=== PATIENT | female | born 1995 | race African-American/Black ===

== ENCOUNTER 2017-01-17 16:49 | Emergency (ER) | payer SELFPAY ==
[2017-01-17] MEDS ORDERED: ACETAMINOPHEN 325 MG TABLET. PO ONE (17:45)
--- NOTE | 2017-01-17 18:11 | PHYS DOC ---
Past Medical History Past Medical History: Asthma, Bronchitis, GERD Past Surgical History: Other Additional Past Surgical Histo: RIGHT HAND SURGERY FOR FRACTURED FINGERS Alcohol Use: None Drug Use: None Adult General Chief Complaint Chief Complaint: SYNCOPE HPI HPI This is a 21-year-old female who states she was at [facility] today and then had a panic attack and she felt very short of breath and weak. Patient additionally reports she had some mild spotting for the last 1-2 days. She believes she is based on her last menstrual period being several months ago apparently. She has not had any follow-up with OB as of yet. Patient does states she has history of a psychiatric disorder and is currently living in a long-term. She does not take any medications. She is currently fully alert and oriented and able to answer my questions. She reports some mild cramping with her pain. Review of Systems Review of Systems Constitutional: Denies fever or chills [] Eyes: Denies change in visual acuity, redness, or eye pain [] HENT: Denies nasal congestion or sore throat [] Respiratory: Denies cough or shortness of breath [] Cardiovascular: No additional information not addressed in HPI [] GI: Denies abdominal pain, nausea, vomiting, bloody stools or diarrhea [] : Denies dysuria or hematuria [] Musculoskeletal: Denies back pain or joint pain [] Integument: Denies rash or skin lesions [] Neurologic: Denies headache, focal weakness or sensory changes [] Endocrine: Denies polyuria or polydipsia [] Current Medications Current Medications Current Medications Medications (Trade) Dose Ordered Sig/[place] Start Time Stop Time Status Last Admin Dose Admin Acetaminophen (Tylenol) 650 mg 1X ONCE 01/17/17 17:45 01/17/17 17:46 DC 01/17/17 17:45 650 MG Allergies Allergies Allergies Coded Allergies Type Severity Reaction Last Updated Verified bupropion Allergy Intermediate 10/23/15 Yes Physical Exam Physical Exam Constitutional: Well developed, well nourished, no acute distress, non-toxic appearance. [] HENT: Normocephalic, atraumatic, bilateral external ears normal, oropharynx moist, no oral exudates, nose normal. [] Eyes: PERRLA, EOMI, conjunctiva normal, no discharge. [] Neck: Normal range of motion, no tenderness, supple, no stridor. [] Cardiovascular:Heart rate regular rhythm, no murmur [] Lungs & Thorax: Bilateral breath sounds clear to auscultation [] Abdomen: Bowel sounds normal, soft, no tenderness, no masses, no pulsatile masses. [] Skin: Warm, dry, no erythema, no rash. [] Back: No tenderness, no CVA tenderness. [] Extremities: No tenderness, no cyanosis, no clubbing, ROM intact, no edema. [] Neurologic: Alert and oriented X 3, normal motor function, normal sensory function, no focal deficits noted. [] Psychologic: Affect normal, judgement normal, mood normal. [] Current Patient Data Vital Signs Vital Signs Date Time Temp Pulse Resp B/P (MAP) Pulse Ox O2 Delivery O2 Flow Rate FiO2 01/17/17 17:02 98.1 92 22 126/76 (93) 94 Room Air 98.1 Lab Values Laboratory Tests Test 01/17/17 17:08 01/17/17 18:10 POC Urine HCG, Qualitative Hcg positive (Negative) White Blood Count 10.5 x10^3/uL (4.0-11.0) Red Blood Count 4.93 x10^6/uL (3.50-5.40) Hemoglobin 14.2 g/dL (12.0-15.5) Hematocrit 42.3 % (36.0-47.0) Mean Corpuscular Volume 86 fL (79-100) Mean Corpuscular Hemoglobin 29 pg (25-35) Mean Corpuscular Hemoglobin Concent 34 g/dL (31-37) Red Cell Distribution Width 13.6 % (11.5-14.5) Platelet Count 333 x10^3/uL (140-400) Neutrophils (%) (Auto) 76 % (31-73) H Lymphocytes (%) (Auto) 18 % (24-48) L Monocytes (%) (Auto) 5 % (0-9) Eosinophils (%) (Auto) 1 % (0-3) Basophils (%) (Auto) 1 % (0-3) Neutrophils # (Auto) 8.0 x10^3uL (1.8-7.7) H Lymphocytes # (Auto) 1.9 x10^3/uL (1.0-4.8) Monocytes # (Auto) 0.6 x10^3/uL (0.0-1.1) Eosinophils # (Auto) 0.1 x10^3/uL (0.0-0.7) Basophils # (Auto) 0.1 x10^3/uL (0.0-0.2) Urine Collection Type Unknown Urine Color Yellow Urine Clarity Clear Urine pH 6.0 Urine Specific [place] 1.020 Urine Protein Negative mg/dL (NEG-TRACE) Urine Glucose (UA) Negative mg/dL (NEG) Urine Ketones (Stick) Negative mg/dL (NEG) Urine Blood Negative (NEG) Urine Nitrite Negative (NEG) Urine Bilirubin Negative (NEG) Urine Urobilinogen Dipstick 0.2 mg/dL (0.2 mg/dL) Urine Leukocyte Esterase Trace (NEG) Urine RBC Occ /HPF (0-2) Urine WBC 1-4 /HPF (0-4) Urine Squamous Epithelial Cells Few /LPF Urine Bacteria Few /HPF (0-FEW) Urine Mucus Slight /LPF Maternal Serum HCG Beta Subunit 238713 mIU/mL (0-6) H Sodium Level 137 mmol/L (136-145) Potassium Level 3.4 mmol/L (3.5-5.1) L Chloride Level 100 mmol/L (98-107) Carbon Dioxide Level 27 mmol/L (21-32) Anion Gap 10 (6-14) Blood Urea Nitrogen 13 mg/dL (7-20) Creatinine 0.7 mg/dL (0.6-1.0) Estimated GFR (Cockcroft-Gault) 125.5 BUN/Creatinine Ratio 19 (6-20) Glucose Level 72 mg/dL (70-99) Calcium Level 9.0 mg/dL (8.5-10.1) Total Bilirubin 0.2 mg/dL (0.2-1.0) Aspartate Amino Transferase (AST) 15 U/L (15-37) Alanine Aminotransferase (ALT) 15 U/L (14-59) Alkaline Phosphatase 62 U/L (46-116) Total Protein 8.4 g/dL (6.4-8.2) H Albumin 3.4 g/dL (3.4-5.0) Albumin/Globulin Ratio 0.7 (1.0-1.7) L Laboratory Tests 01/17/17 18:10 Laboratory Tests 01/17/17 18:10 EKG EKG EKG as interpreted by me shows a sinus rhythm with rate of 87 bpm. There are no acute ischemic findings. There is no ectopy. Radiology/Procedures Radiology/Procedures PROCEDURE OB ultrasound dated 01/17/2017. HISTORY Spotty and pain for 2 days. TECHNIQUE Routine sonographic imaging performed. COMPARISON None. FINDINGS Single intrauterine gestation identified. Radisson rump length measuring 5.3 centimeter, correlating with a 12 weeks 0 day gestation. Gestational sac unremarkable. Yolk sac is visualized. cardiac activity estimated at 160 beats per minute. Right ovary measures 3.4 x 2.5 x 1.7 centimeter. Left ovary measures 3.1 x 3.4 x 1.7 centimeter. No adnexal mass or free fluid. IMPRESSION Single viable intrauterine gestation with estimated sonographic gestational age of 12 weeks 0 days. No acute findings. Electronically signed by: Raul Tomlin (January 17, 2017 19:09:10) DICTATED and SIGNED BY: RAUL TOMLIN MD DATE: 01/17/17 1909 CC: KYLE MIRANDA DO; NO PCP ~ Course & Med Decision Making Course & Med Decision Making Pertinent Labs and Imaging studies reviewed. (See chart for details) 18-year-old female who was having significant panic attack and some mild spotting today had a test that was positive. She had a full laboratory workup for her spotting. A transvaginal ultrasound demonstrated viable IUP at approximately 12 weeks gestation. Her laboratory workup was unremarkable. I'll be discharging her with a course of Benadryl to help her rest at night as well as vitamins. I discussed with her that the pregnancies and a friend stated this time and she is to follow closely with an OB doctor next several days to have repeat blood work drawn. Patient is agreeable this plan. She does appear to have some mild psychiatric illness but I deemed her safe at this time to have full capacity to make decisions for her health and she is understanding of her symptoms. Sandra Disclaimer Sandra Disclaimer This electronic medical record was generated, in whole or in part, using a voice recognition dictation system. Departure Departure Impression: Primary Impression: Threatened Additional Impression: Panic attacks Disposition: HOME, SELF-CARE Admitting Physician: Other Condition: STABLE Referrals: NO PCP (PCP) Patient Instructions: Threatened Miscarriage, [id number] Additional Instructions: Please follow up with your OB doctor in the next 2-3 days for your . Take your medication as prescribed. Return to the ER if you develop any worsening of your symptoms. Scripts Vits W-Ca,Fe,Fa(<1MG) ( VITAMINS) 1 Each Tablet 1 EACH PO DAILY for 30 Days, #30 TAB Prov: KYLE MIRANDA DO 01/17/17 Diphenhydramine Hcl (BENADRYL) 25 Mg Capsule 25 MG PO QHS for 10 Days, #10 CAP Prov: KYLE MIRANDA DO 01/17/17 Problem Qualifiers KYLE MIRANDA DO January 17, 2017 18:11
[2017-01-17 18:18] LABS: BASO # 0.1 x10^3/uL (0.0-0.2); BASO % 1 % (0-3); EOS % 1 % (0-3); HEMATOCRIT 42.3 % (36.0-47.0); HEMOGLOBIN 14.2 g/dL (12.0-15.5); LYMPH # 1.9 x10^3/uL (1.0-4.8); LYMPH % 18 % (24-48); MEAN CORPUSCULAR HEMOGLOBIN 29 pg (25-35); MEAN CORPUSCULAR HGB CONC 34 g/dL (31-37); MEAN CORPUSCULAR VOLUME 86 fL (79-100); MONO % 5 % (0-9); NEUT % 76 % (31-73); PLATELET COUNT 333 x10^3/uL (140-400); RED BLOOD COUNT 4.93 x10^6/uL (3.50-5.40); RED CELL DISTRIBUTION WIDTH 13.6 % (11.5-14.5); WHITE BLOOD COUNT 10.5 x10^3/uL (4.0-11.0)
[2017-01-17 18:19] LABS: BILIRUBIN,URINE NEGATIVE (NEG); GLUCOSE,URINE NEGATIVE (NEG); NITRITE,URINE NEGATIVE (NEG); PROTEIN,URINE NEGATIVE (NEG-TRACE); UROBILINOGEN,URINE 0.2 mg/dL (0.2 mg/dL)
[2017-01-17 18:34] LABS: BACTERIA,URINE FEW /HPF (0-FEW); RBC,URINE OCC /HPF (0-2); SQUAMOUS EPITHELIAL CELL,UR FEW /LPF
--- NOTE | 2017-01-17 18:35 | EKG ---
[facility] [address] [place] [address] Test Date: 2017-01-17 Test Time: 17:14:50 Pat Name: LUIS DANIEL HERRERA Department: Room: Gender: F [employer]: : 1995 Requested By: KYLE MIRANDA Order Number: [id number] Reading MD: Measurements Intervals [place] Rate: 87 P: 58 CT: 154 QRS: 62 QRSD: 70 T: 47 QT: 328 QTc: 395 Interpretive Statements SINUS RHYTHM QRS(T) CONTOUR ABNORMALITY CONSIDER ANTEROSEPTAL MYOCARDIAL DAMAGE RI6.01 Unconfirmed report No previous ECG available for comparison
[2017-01-17 18:36] LABS: CREATININE 0.7 mg/dL (0.6-1.0); GFR 125.5; POTASSIUM 3.4 mmol/L (3.5-5.1)
[2017-01-17 18:42] LABS: ALBUMIN 3.4 g/dL (3.4-5.0); ALBUMIN/GLOBULIN RATIO 0.7 (1.0-1.7); TOTAL BILIRUBIN 0.2 mg/dL (0.2-1.0); TOTAL PROTEIN 8.4 g/dL (6.4-8.2)
--- NOTE | 2017-01-17 19:10 | RAD ---
PROCEDURE OB ultrasound dated 01/17/2017. HISTORY Spotty and pain for 2 days. TECHNIQUE Routine sonographic imaging performed. COMPARISON None. FINDINGS Single intrauterine gestation identified. [place] rump length measuring 5.3 centimeter, correlating with a 12 weeks 0 day gestation. Gestational sac unremarkable. Yolk sac is visualized. cardiac activity estimated at 160 beats per minute. Right ovary measures 3.4 x 2.5 x 1.7 centimeter. Left ovary measures 3.1 x 3.4 x 1.7 centimeter. No adnexal mass or free fluid. IMPRESSION Single viable intrauterine gestation with estimated sonographic gestational age of 12 weeks 0 days. No acute findings. Electronically signed by: Raul Tomlin (January 17, 2017 19:09:10)
[2017-01-17] MEDS ORDERED: DIPH25CA58 PO (19:38)
[2017-01-17] MEDS ORDERED: PREN1TAB58 PO (19:38)
[2017-01-17 20:00] VITALS: BP 138/78
== END 2017-01-17 20:00 | disposition home or self-care (01) ==
LOC: ER 17:59
DX: O20.0 Threatened abortion (principal); O26.891 Other specified pregnancy related conditions, first trimester; F41.0 Panic disorder [episodic paroxysmal anxiety]; O99.511 Diseases of the respiratory system complicating pregnancy, first trimester; J45.909 Unspecified asthma, uncomplicated; O99.611 Diseases of the digestive system complicating pregnancy, first trimester; K21.9 Gastro-esophageal reflux disease without esophagitis; Z3A.12 12 weeks gestation of pregnancy; Z88.8 Allergy status to other drugs, medicaments and biological substances
CPT/HCPCS: 36415; 76801; 80053; 81001; 81025; 84702; 84703; 85027; 86850; 86900; 86901; 87086; 93005; 99285-25